=== PATIENT | male | born 1975 | race Caucasian/White ===

== ENCOUNTER 2019-04-25 18:53 | Inpatient (IN) | payer BC, SELFPAY ==
[2019-04-25 18:57] VITALS: BP 146/87; PULSE 111; RESP 16; TEMP 36.9; O2SAT 96; BMI 32.5
[2019-04-25 20:17] VITALS: BP 137/89; PULSE 112; RESP 20; TEMP 36.9; O2SAT 97
--- NOTE | 2019-04-25 20:19 | ED_ITS ---
HPI - Skin/Abscess/Foreign Bdy General Chief complaint: Skin/Abscess/Foreign Body Stated complaint: RIGHT LEG INFECTION Time Seen by Provider: 04/25/19 20:15 Source: patient Mode of arrival: Ambulatory Limitations: no limitations History of Present Illness HPI narrative: 43-year-old male sent over from his primary care doctor's office for evaluation of potential infection in his right thigh. Patient has been doin g testosterone injections. His last injection was approximately 6 days ago. Over the past couple days he has noticed swelling in his right leg. Went to primary doctor today. They noticed that it was swollen and warm and somewhat red. Patient has not had any fevers. This concerned her for an infection verses a blood clot. Sent to the emergency department for evaluation Related Data Home Medications Medication Instructions Recorded Confirmed No Known Home Medications 04/25/19 04/25/19 Allergies Allergy/AdvReac Type Severity Reaction Status Date / Time No Known Drug Allergies Allergy Verified 04/25/19 19:02 Review of Systems Constitutional Constitutional: Denies fever(s) Cardiovascular Cardiovascular: Denies chest pain and Denies dyspnea Respiratory Respiratory: Denies dyspnea Gastrointestinal Gastrointestinal: Denies abdominal pain Musculoskeletal Musculoskeletal: Denies tingling Comments: Right thigh pain Integumentary/Breasts Comments: Redness around right thigh Neurologic Neurologic: Denies behavioral changes and Denies tingling Psychiatric Psychiatric: Denies behavioral changes Hematologic/Lymphatic Hematologic/Lymphatic: Denies easy bleeding and Denies easy bruising Patient History Medical History Low testosterone (Acute) Social History household members: family Smoking Status: Never smoker Smoking Status: Never smoker alcohol intake frequency: 0-2 drinks per day Substance Use Type: does not use Exam Initial Vital Signs Initial Vital Signs: Vital Signs Temperature 98.4 F 04/25/19 18:57 Pulse Rate 111 H 04/25/19 18:57 Respiratory Rate 16 04/25/19 18:57 Blood Pressure 146/87 H 04/25/19 18:57 Pulse Oximetry 96 04/25/19 18:57 Const General: cooperative and comfortable Limitations: mental status not altered HENMT Head: normal to inspection and normocephalic Skin Other: Minimal redness anterior right thigh. Is warm over this area. Neuro Gait: normal gait Sensory Exam: no sensory deficits noted Extrem Other: Patient is swollen around the right thigh compared to the left side. Is somewhat diffusely tender. Psych Appearance: grossly normal and well kempt Course Orders Ordered: ED Orders 04/25/19 20:19 CT LE RT w con Stat 04/25/19 20:40 Basic Metabolic Panel Stat C-Reactive Protein Quant Stat Complete Blood Count AUTO DIFF Stat Creatine Kinase Stat Erythrocyte Sedimentation Rate Stat Lactate (Lactic Acid) Stat Reticulocyte Count, Percent Stat 04/25/19 22:45 Erythrocyte Sedimentation Rate Stat Sodium Chloride (Normal Saline 0.9%) 1,000 mls @ 125 mls/hr IV CONT RIVAS Last Admin: 04/26/19 00:26 Dose: 125 mls/hr Documented by: JAYME Morphine Sulfate (Morphine) 2 mg IV Q4HR PRN PRN Reason: Pain, Mild (1-3) Last Admin: 04/26/19 00:26 Dose: 2 mg Documented by: JAYME Ondansetron HCl (Zofran) 4 mg IV Q4HR PRN PRN Reason: Nausea And Vomiting Discontinued Medications Sodium Chloride (Normal Saline 0.9%) 1,000 mls @ 1,000 mls/hr IV BOLUS ONE Stop: 04/25/19 21:18 Last Infusion: 04/25/19 22:21 Dose: 0 mls/hr Documented by: [email or web address] Admin: 04/25/19 21:10 Dose: 1,000 mls/hr Documented by: [email or web address] Vancomycin HCl/Dextrose (Vancomycin) 2,000 mg in 400 mls @ 200 mls/hr IV NOW ONE Stop: 04/26/19 01:23 Last Admin: 04/26/19 00:25 Dose: 200 mls/hr Documented by: JAYME Influenza Virus Vaccine (Flu Vaccine) 0.5 ml IM .ONCE ONE Stop: 04/26/19 01:43 Vital Signs Vital signs: Vital Signs - 8 hr 04/25/19 18:57 04/25/19 20:17 04/25/19 20:32 Temperature 98.4 F 98.5 F 97.9 F Pulse Rate 111 H 112 H 102 H Respiratory Rate 16 20 16 Blood Pressure 146/87 H Blood Pressure [Right Arm] 137/89 137/89 Pulse Oximetry 96 97 95 04/25/19 21:51 04/25/19 22:37 Temperature 97.8 F Pulse Rate 101 H 69 Respiratory Rate 16 Blood Pressure Blood Pressure [Right Arm] 141/85 H 139/79 Pulse Oximetry 98 98 MDM - Skin/Abscess/Foreign Bdy Lab Data Attestation: I reviewed the patient's lab results. Result diagrams: 04/25/19 20:40 04/25/19 20:40 Labs: Lab Results 04/25/19 04/25/19 04/25/19 Range/Units 20:40 20:40 20:40 WBC 14.5 H (4.5-11.0) X10^3/uL RBC 4.52 (4.5-5.9) X10^6/uL Hgb 14.4 (13.5-17.5) g/dL Hct 42.3 (41-53) % MCV 93.7 (80-100) fL MCH 31.9 (26-34) PG MCHC 34.1 (30-36) % RDW 12.8 (11.6-14.8) % Plt Count 235 (150-400) X10^3/uL Neut % (Auto) 80.4 H (50-75) % Lymph % (Auto) 11.4 L (25-40) % [place] % (Auto) 7.8 (3-14) % Eos % (Auto) 0.2 L (2-4) % Baso % (Auto) 0.2 (0-2) % Neut # (Auto) 97905 H (6183-1401) /uL Lymph # (Auto) 1600 (4769-7590) /uL [place] # (Auto) 1100 H (0-900) /uL Eos # (Auto) 0 (0-450) /uL Baso # (Auto) 0 (0-100) /uL ESR QNS Percent Retic 1.5 (0.87-2.60) % Sodium 135 L (137-145) mmol/L Potassium 4.1 (3.4-5.1) mmol/L Chloride 101 (98-107) mmol/L Carbon Dioxide 26 (22-32) mmol/L BUN 7 L (9-20) mg/dL Creatinine 1.01 (0.66-1.25) mg/dL Estimated GFR > 60.0 (>60) mL/min BUN/Creatinine Ratio 6.9 (6-22) Glucose 93 (70-100) mg/dL Lactate (0.7-2.1) mmol/L Calcium 9.6 (8.4-10.2) mg/dL Total Creatine Kinase (55-170) U/L C-Reactive Protein (<1.0) mg/dL 04/25/19 04/25/19 04/25/19 Range/Units 20:40 20:40 20:40 WBC (4.5-11.0) X10^3/uL RBC (4.5-5.9) X10^6/uL Hgb (13.5-17.5) g/dL Hct (41-53) % MCV (80-100) fL MCH (26-34) PG MCHC (30-36) % RDW (11.6-14.8) % Plt Count (150-400) X10^3/uL Neut % (Auto) (50-75) % Lymph % (Auto) (25-40) % [place] % (Auto) (3-14) % Eos % (Auto) (2-4) % Baso % (Auto) (0-2) % Neut # (Auto) (3747-9462) /uL Lymph # (Auto) (0705-8824) /uL [place] # (Auto) (0-900) /uL Eos # (Auto) (0-450) /uL Baso # (Auto) (0-100) /uL ESR Percent Retic (0.87-2.60) % Sodium (137-145) mmol/L Potassium (3.4-5.1) mmol/L Chloride (98-107) mmol/L Carbon Dioxide (22-32) mmol/L BUN (9-20) mg/dL Creatinine (0.66-1.25) mg/dL Estimated GFR (>60) mL/min BUN/Creatinine Ratio (6-22) Glucose (70-100) mg/dL Lactate 0.7 (0.7-2.1) mmol/L Calcium (8.4-10.2) mg/dL Total Creatine Kinase 231 H (55-170) U/L C-Reactive Protein 4.2 H (<1.0) mg/dL 04/25/19 Range/Units 22:45 WBC (4.5-11.0) X10^3/uL RBC (4.5-5.9) X10^6/uL Hgb (13.5-17.5) g/dL Hct (41-53) % MCV (80-100) fL MCH (26-34) PG MCHC (30-36) % RDW (11.6-14.8) % Plt Count (150-400) X10^3/uL Neut % (Auto) (50-75) % Lymph % (Auto) (25-40) % [place] % (Auto) (3-14) % Eos % (Auto) (2-4) % Baso % (Auto) (0-2) % Neut # (Auto) (6891-3740) /uL Lymph # (Auto) (9895-3258) /uL [place] # (Auto) (0-900) /uL Eos # (Auto) (0-450) /uL Baso # (Auto) (0-100) /uL ESR 30 H Percent Retic (0.87-2.60) % Sodium (137-145) mmol/L Potassium (3.4-5.1) mmol/L Chloride (98-107) mmol/L Carbon Dioxide (22-32) mmol/L BUN (9-20) mg/dL Creatinine (0.66-1.25) mg/dL Estimated GFR (>60) mL/min BUN/Creatinine Ratio (6-22) Glucose (70-100) mg/dL Lactate (0.7-2.1) mmol/L Calcium (8.4-10.2) mg/dL Total Creatine Kinase (55-170) U/L C-Reactive Protein (<1.0) mg/dL Imaging Data CT extremity: Radiologist's Impression: [address] [address] [address] Scan Report Signed Patient: Regan TaverasMR#: [id number] : 1975Acct:[id number] Age/Sex: 43 / MDate of Service: 04/25/19 Loc: ED Accession Number: [id number] Procedure: CT LE RT w con Ordering Provider: Bernard Osorio D.O. PROCEDURE: CT LE RT W CON INDICATIONS: R thigh infection eval for deep abscess TECHNIQUE: After the administration of intravenous contrast, 3 mm axial sections acquired of the right thigh, with coronal and sagittal reformats. COMPARISON: None. FINDINGS: Image quality: Excellent. Bones: No suspicious osseous lesion, fracture, dislocation, or periostitis. Soft tissues: There is abnormal intramuscular low-density, and diffuse, mild muscular enlargement involving the right rectus femoris muscle from the proximal myotendinous junction through its distal tendon. A focal lentiform fluid collection is found along the lateral proximal aspect within the muscle fascia and there is moderate inflammation of the deep fascial margins. This intramuscular fluid collection to measures approximately 10.7 cm in craniocaudal dimension, 3.7 cm in AP direction by 2.0 cm transverse. There is no gas in the soft tissue. There is mild superficial fascial inflammation along the mid to distal thigh to the level of the knee joint. IMPRESSION: 1. There is an unencapsulated intramuscular fluid collection involving the proximal lateral rectus femoris muscle suspicious for early abscess. 2. There is mild inflammation, and diffuse low density, and enlargement involving the entire rectus femoris muscle with superficial and deep fascial inflammatory change suggesting myositis. No soft tissue gas to suggest myonecrosis. Close clinical followup is recommended. Dictated by: Elida Pyle M.D. on 04/25/2019 at 21:54 Approved by: Elida Pyle M.D. on 04/25/2019 at 22:07 [facility] Narrative Medical decision making narrative: Patient is at risk for infection/hematoma in his right thigh given the injections that he has been doing. He is afebrile however is slightly tachycardic. Also has a leukocytosis. Also has an elevated ESR and CRP. CT scan shows what appears to be a fluid collection in his right anterior thigh. There is question about whether not this is a hematoma verses a developing abscess. I did discuss the case with Dr. Galarza with Orthopedics who stated that the patient could be admitted. Recommended starting on vancomycin and NPO after midnight for potential surgery tomorrow. Did discuss this with the patient. He expressed understanding agreement. Discharge Plan Departure Patient Disposition: Home Clinical Impression: Abscess of right thigh Discharge Date/Time: 04/26/19 00:10 Admit Date/Time: 04/25/19 23:23
[2019-04-25 20:32] VITALS: BP 137/89; PULSE 102; RESP 16; TEMP 36.6; O2SAT 95
[2019-04-25 21:03] LABS: Add Manual Diff / Slide Review NO; Basophils Absolute Auto 0 /uL (0-100); Basophils Percent Auto 0.2 % (0-2); Eosinophils Absolute Auto 0 /uL (0-450); Eosinophils Percent Auto 0.2 % (2-4); Hematocrit 42.3 % (41-53); Hemoglobin 14.4 g/dL (13.5-17.5); Lymphocytes Absolute Auto 1600 /uL (1100-4500); Lymphocytes Percent Auto 11.4 % (25-40); Mean Corpuscular HGB Conc 34.1 % (30-36); Mean Corpuscular Hemoglobin 31.9 PG (26-34); Mean Corpuscular Volume 93.7 fL (80-100); Monocytes Absolute Auto 1100 /uL (0-900); Monocytes Percent Auto 7.8 % (3-14); Neutrophils Absolute Auto 11600 /uL (1500-7000); Neutrophils Percent Auto 80.4 % (50-75); Platelet Count 235 X10^3/uL (150-400); Red Blood Cell Count 4.52 X10^6/uL (4.5-5.9); Red Cell Distribution Width 12.8 % (11.6-14.8); White Blood Cell Count 14.5 X10^3/uL (4.5-11.0)
[2019-04-25 21:04] LABS: Reticulocyte Count, Percent 1.5 % (0.87-2.60)
[2019-04-25 21:08] LABS: Erythrocyte Sedimentation Rate QNS MM/HR (0-15)
[2019-04-25] MEDS: SODIUM CHLORIDE 0.9% 1,000 ML 1000 ML IV (21:10)
[2019-04-25 21:14] LABS: BUN Creatinine Ratio 6.9 (6-22); Blood Urea Nitrogen 7 mg/dL (9-20); Calcium 9.6 mg/dL (8.4-10.2); Carbon Dioxide 26 mmol/L (22-32); Chloride 101 mmol/L (98-107); Estimated Glomerular Filt Rate > 60.0 mL/min (>60); Glucose 93 mg/dL (70-100); HEMOLYSIS < 15 (0-50); Lactate (Lactic Acid) 0.7 mmol/L (0.7-2.1); Potassium 4.1 mmol/L (3.4-5.1); Sodium 135 mmol/L (137-145)
[2019-04-25 21:51] VITALS: BP 141/85; PULSE 101; O2SAT 98
[2019-04-25 22:37] VITALS: BP 139/79; PULSE 69; RESP 16; TEMP 36.6; O2SAT 98
[2019-04-25 22:41] LABS: Creatine Kinase 231 U/L (55-170)
[2019-04-25 22:44] LABS: C-Reactive Protein Quant 4.2 mg/dL (<1.0)
--- NOTE | 2019-04-25 23:09 | PC.NURSE ---
Report given to Galilea.
[2019-04-25 23:10] LABS: Erythrocyte Sedimentation Rate 30 MM/HR (0-15)
[2019-04-25 23:56] VITALS: BMI 32.5
[2019-04-26] VITALS (20 sets, daily range): BP systolic 116–157; BP diastolic 63–106; PULSE 73–107; RESP 10–19; TEMP 36.6–37.1; O2SAT 86–98; BMI 32.9
[2019-04-26] MEDS: VANCOMYCIN 2,000 MG/400 ML PIGGYBACK 200 MG IV (00:25)
[2019-04-26] MEDS: SODIUM CHLORIDE 0.9% 1,000 ML 125 ML IV ×2 (00:26→09:31)
[2019-04-26] MEDS: MORPHINE 2 MG/ML INJ IV ×2 (00:26→07:35)
--- NOTE | 2019-04-26 04:55 | PC.NURSE ---
Pt admitted to unit as AxOx4, VSS, slightly tachycardic. Complained of 4 out of 10 right thigh pain relieved with IV morphine. Right thigh is hot, red, swollen. No opened skin. Independent of ADLs NS@125mL/hr Kept NPO at midnight
[2019-04-26] MEDS: INFLUENZA VACCINE 0.5 ML SYRINGE IM (07:56)
--- NOTE | 2019-04-26 08:05 | PM.CN ---
History of Present Illness Consult details Date Patient Seen: 04/26/19 Time Patient Seen: 08:05 Chief complaint: RIGHT LEG INFECTION Reason for consult: Right rectus femoris pyomyositis Requesting provider: Bernard Osorio Narrative: Patient is a 43 yo male who recently (5 weeks ago) started injecting testosterone into his right thigh. Over the last several days patient has had increased pain in the right thigh. He was seen by his PCP who recommended he come to the ED for evaluation. In the ED CT scan revealed a 10cm by 4cm fluid collection within the right rectus femoris concerning for abscess. His infectious labs are also concerning for infection. He denies any trauma to the thigh. Denies any previous symptoms. Denies nausea, vomiting, fevers or chills. Meds Home Medications and Allergies Home Medications Medication Instructions Recorded Confirmed Type No Known Home Medications 04/25/19 04/25/19 History Allergies Allergy/AdvReac Type Severity Reaction Status Date / Time No Known Drug Allergies Allergy Verified 04/25/19 19:02 Review of Systems Review of Systems ROS: Yes All systems reviewed with the patient and are negative except as otherwise documented Exam Vital Signs (past 8 hours): - 04/26/19 00:20 04/26/19 05:00 Temperature 98.8 F 98.4 F Pulse Rate 107 H 92 H Respiratory Rate 18 18 Blood Pressure 132/89 136/72 Pulse Oximetry 97 97 Oxygen Delivery Method Room Air Oxygen Flow Rate 0 Narrative Exam Narrative: right thigh swelling, mild erythema, increased warmth. TTP over the proximal anterior thigh. NV intact distally. No drainage. Able to extend and flex knee. Skin is intact. Objective Labs Result Diagrams: 04/25/19 20:40 04/25/19 20:40 Labs: Laboratory Results - last 24 hr 04/25/19 04/25/19 04/25/19 20:40 20:40 20:40 WBC 14.5 H RBC 4.52 Hgb 14.4 Hct 42.3 MCV 93.7 MCH 31.9 MCHC 34.1 RDW 12.8 Plt Count 235 Neut % (Auto) 80.4 H Lymph % (Auto) 11.4 L [place] % (Auto) 7.8 Eos % (Auto) 0.2 L Baso % (Auto) 0.2 Neut # (Auto) 45652 H Lymph # (Auto) 1600 [place] # (Auto) 1100 H Eos # (Auto) 0 Baso # (Auto) 0 ESR QNS Percent Retic 1.5 Sodium 135 L Potassium 4.1 Chloride 101 Carbon Dioxide 26 BUN 7 L Creatinine 1.01 Estimated GFR > 60.0 BUN/Creatinine Ratio 6.9 Glucose 93 Lactate Calcium 9.6 Total Creatine Kinase C-Reactive Protein 04/25/19 04/25/19 04/25/19 20:40 20:40 20:40 WBC RBC Hgb Hct MCV MCH MCHC RDW Plt Count Neut % (Auto) Lymph % (Auto) [place] % (Auto) Eos % (Auto) Baso % (Auto) Neut # (Auto) Lymph # (Auto) [place] # (Auto) Eos # (Auto) Baso # (Auto) ESR Percent Retic Sodium Potassium Chloride Carbon Dioxide BUN Creatinine Estimated GFR BUN/Creatinine Ratio Glucose Lactate 0.7 Calcium Total Creatine Kinase 231 H C-Reactive Protein 4.2 H 04/25/19 22:45 WBC RBC Hgb Hct MCV MCH MCHC RDW Plt Count Neut % (Auto) Lymph % (Auto) [place] % (Auto) Eos % (Auto) Baso % (Auto) Neut # (Auto) Lymph # (Auto) [place] # (Auto) Eos # (Auto) Baso # (Auto) ESR 30 H Percent Retic Sodium Potassium Chloride Carbon Dioxide BUN Creatinine Estimated GFR BUN/Creatinine Ratio Glucose Lactate Calcium Total Creatine Kinase C-Reactive Protein Assessment & Plan Assessment & Plan narrative: Patient is a 43 yo male with a several day history of right thigh pain. He was found to have right rectus femoris pyomyositis. I had a long discussion with the patient regarding noon-operative and operative treatment. The area appears larger than what could be effectively treated with abx. In addition, abx only therapy may require a prolonged hospital course, which has its own risks with the current Coronavirus outbreak. For these reasons I recommend I&D followed by a short course of IV abx followed by transition to outpatient oral abx. The risks and benefits of surgery were discussed including the risk of damage to local structures such as vessels and nerves, need for future surgeries, continued infection, DVT, PE, etc. Time Spent With Patient Time with patient: 15-24 minutes
[2019-04-26] MEDS: VANCOMYCIN 1,500 MG/300 ML FROZ.PIGGY 200 MG IV ×2 (09:26→16:21)
--- NOTE | 2019-04-26 12:09 | PC.NURSE ---
Day shift: Pt off unit for I&D at this time. (1210).
[2019-04-26] MEDS: LACTATED RINGERS 1,000 ML 42 ML IV ×2 (12:18→14:48)
--- NOTE | 2019-04-26 12:49 | PM.PREOP ---
Pre-operative Note Interval Note History & Physical reviewed/Exam performed by Physician: Yes Changes to H&P: No H&P completed within 30 days and has changed as indicated here:: Plan for right thigh I&D
--- NOTE | 2019-04-26 13:34 | SUR.OPER ---
Supine on padded OR bed, head on pillow, arms secured on padded arm boards at <90 degrees abduction, legs uncrossed, safety belt at abdomen, bump under right hip, legs controlled by surgical team.
--- NOTE | 2019-04-26 14:13 | P.OP_ITS ---
Operative Date/Time/Diagnoses Date of procedure: 04/26/19 Time of procedure: 14:13 Pre-op diagnosis: right thigh abscess Post-op diagnosis: same Procedure & Clinicians Procedure: Right thigh irrigation and debridement of deep abscess Same procedure as scheduled: Yes Indications: right thigh rectus femoris pyomyositis Surgeon: Paul Galarza Carbon Brusher Assembler: Jenny Lal Anesthesia Type: General Operative Notes Findings: Right thigh rectus femoris pyomyositis Closure Type: primary Specimen(s): other (swabs and aspirate ) Estimated Blood Loss (mL): 50 Procedure in detail: Patient was met in the preoperative holding area where the site and side of surgery marked by MD consent was reviewed and signed with the patient. All last minute questions were answered. Patient was then brought back in the operating room where he was transferred on the operating room table and then induced under general anesthesia. The right hip was then prepped and draped in normal sterile fashion. A surgical time-out was performed verifying the site and side of surgery as well as the name of the patient. A 5 cm long incision in the long axis of the femur was made over the anterior thigh roughly in line with the anterior hip approach but slightly more medial. Skin incision was made using 10. Blade followed by electrocautery down to the rectus fascia. Rectus fascia was then incised with a #15 blade. I then used my finger to blunt dissect along the lateral margin of the rectus at which point a large bolus of purulent material came out of the rectus sheath and filled the wound. Cultures and swabs were taken from the sample. This was then suctioned away and copious irrigation of the rectus sheath with 6 L of normal saline and blunt debridement was performed. No other pockets of purulence were encountered. The rectus sheath was closed using 1. PDS followed by 2 0 PDS in subcutaneous layer followed by 3 O nylon in vertical mattress fashion followed by sterile dressings. Complications: none Post-operative Condition: stable Disposition: PACU Plan for aftercare: 24 hours of postop IV vancomycin followed by transition to oral antibiotics for 2 weeks. Weightbearing as tolerated right lower extremity
[2019-04-26] MEDS: HYDROMORPHONE 2 MG INJ IV (14:36)
[2019-04-26] MEDS: fentaNYL 100 MCG/2 ML INJ IV (14:37)
[2019-04-26] MEDS: hydrOXYzine 50 MG/ML INJ 25 MG IM (14:44)
[2019-04-26] MEDS: ONDANSETRON 4 MG/2 ML INJ IV (14:44)
--- NOTE | 2019-04-26 14:45 | CM.DANOTE ---
DCP assessment: EMR Reviewed: patient is a 43 yr old male who was admitted to the hospital for Rt leg infection. Patient had a I&D procedure preformed by Dr Galarza. CM/RN met with patient at the bedside and explained CM/RN role. Patient was alert and oriented x3 during CM/Rn visit. Patient is Independent for all ADLs and drives at baseline. Patient stated he doesn't want to be in the hospital. CM/Rn explained the reasoning behind staying in the hospital and getting IV antibiotics. Patient stated understanding and said he is willing to stay in the hospital he just doesn't really want to. Patients room mate/ family came in and was present during meeting as well. Patient lives in a two story house in [place] with 20 stairs. Patient was up and ambulating around the room while CM/RN was there and states he feels like he can handle stairs and caring for himself fine at D/C. I: [employer] out of state [facility] Plan: D/C home with family when medically stable. No identified D/C planning needs noted at this time. Cm department will continue to follow and assist with any new D/C planning needs that may arise. Misa Barillas RN Discharge Planning/Care Management CM Discharge Assessment Start: 04/26/19 14:43 Freq: Status: Active Protocol: Document 04/26/19 14:43 HS (Rec: 04/26/19 14:45 HS [id number]) Discharge Planning Assessment Assigned [employer] Misa Barillas RN DPOA/Assigned Designee Name Janice Arshad (girl friend) Contact Information [phone] Advance Directives? No History Provided By Patient,Medical Record Has Patient been admitted in last 30 No days? Prior Living Arrangements House Household Members family Type of transporation used prior to Drives own vehicle admit Independent with ADL's Yes Is patient alert and oriented? Yes Caregiver for Another No Barriers to Discharge No Discharge Plan Home Referrals Initiated None needed Whiteboard Updated in Patient Room with Yes name and ext. # of [employer] Review Status In Process Next Review Type Continued Stay Review
--- NOTE | 2019-04-26 15:14 | SUR.PHASEI ---
Assumed care. VS stable. Ice pack applied to thigh per order. Ice chips provided.
--- NOTE | 2019-04-26 16:04 | SUR.PHASEI ---
Transported patient to inpatient room in stable condition with assistance of OR tech.
[2019-04-26] MEDS: ACETAMINOPHEN 325 MG TABLET 975 MG PO ×2 (16:21→22:03)
[2019-04-26] MEDS: OXYCODONE IR 5 MG TABLET PO ×2 (16:22→22:03)
[2019-04-26] MEDS: OXYCODONE IR 10 MG TABLET PO (17:24)
[2019-04-26 19:21] LABS: Hematocrit 37.1 % (41-53); Hemoglobin 12.9 g/dL (13.5-17.5)
[2019-04-26] MEDS: DOCUSATE 100 MG CAPSULE PO (22:04)
[2019-04-27] MEDS: VANCOMYCIN 1,500 MG/300 ML FROZ.PIGGY 200 MG IV ×3 (00:47→19:22)
[2019-04-27 01:09] LABS: Vancomycin Trough 10.1 ug/mL (10-20)
[2019-04-27] MEDS: VANCOMYCIN TROUGH 1 REQUEST MISC (01:27)
[2019-04-27] MEDS: OXYCODONE IR 5 MG TABLET PO ×4 (02:58→12:41)
[2019-04-27 03:24] VITALS: BP 125/78; PULSE 77; RESP 16; TEMP 36.6; O2SAT 97
[2019-04-27 06:56] LABS: C-Reactive Protein Quant 6.8 mg/dL (<1.0)
[2019-04-27 06:59] LABS: Hematocrit 38.5 % (41-53); Mean Corpuscular HGB Conc 33.7 % (30-36); Mean Corpuscular Hemoglobin 31.7 PG (26-34); Platelet Count 238 X10^3/uL (150-400); Red Cell Distribution Width 12.5 % (11.6-14.8); White Blood Cell Count 8.1 X10^3/uL (4.5-11.0)
[2019-04-27 07:45] VITALS: BP 141/87; PULSE 108; RESP 18; TEMP 37; O2SAT 99
[2019-04-27] MEDS: ACETAMINOPHEN 325 MG TABLET 975 MG PO ×3 (08:49→21:26)
[2019-04-27] MEDS: DOCUSATE 100 MG CAPSULE PO ×2 (08:54→21:27)
--- NOTE | 2019-04-27 09:27 | PM.PNPO.1 ---
Subjective Subjective Date Patient Seen: 04/27/19 Time Patient Seen: 09:27 Interval history: Pain mild. Denies fever chills. No nausea vomiting. Exam Vital Signs (past 8 hours): - 04/27/19 03:24 04/27/19 07:45 Temperature 97.9 F 98.6 F Pulse Rate 77 108 H Respiratory Rate 16 18 Blood Pressure 125/78 141/87 H Pulse Oximetry 97 99 Oxygen Delivery Method Nasal Cannula Oxygen Flow Rate 0 Narrative Exam Narrative: 43-year-old male sitting comfortably in bedside chair in no apparent distress. Right thigh dressing is clean, dry and intact. Mild swelling generally about the anterior lateral thigh. No erythema noted. Motor functions intact distal right lower extremity. Sensation grossly intact light touch. Objective Labs Result Diagrams: 04/27/19 06:32 04/25/19 20:40 Labs: Laboratory Results - last 24 hr 04/26/19 04/27/19 04/27/19 19:14 00:30 06:32 WBC 8.1 RBC 4.10 L Hgb 12.9 L 13.0 L Hct 37.1 L 38.5 L MCV 94.0 MCH 31.7 MCHC 33.7 RDW 12.5 Plt Count 238 C-Reactive Protein Vancomycin Trough 10.1 04/27/19 06:32 WBC RBC Hgb Hct MCV MCH MCHC RDW Plt Count C-Reactive Protein 6.8 H Vancomycin Trough Assessment & Plan Post-op Postoperative Procedures: Procedures Operation Date: 04/26/19 12:30 Actual Procedures Side Surgeon p Right Thigh abscess in Rectus Remoris Right Paul Galarza MD Postop day 1 status post right thigh irrigation debridement of deep abscess. Postop plan was to continue 24 hours of IV antibiotics followed by transition to oral antibiotics for 2 weeks. Weightbearing as tolerated right lower extremity. After talking with Dr. Galarza this morning patient will continue another 24 hours of IV antibiotics. Repeat CBC, sed rate, C reactive protein. Review lab results with Dr. Galarza prior to transition to oral antibiotics and discharge home.
--- NOTE | 2019-04-27 10:30 | PT.IIE ---
Current Diagnoses Infective myositis, right thigh (04/25/19) Surgery Performed Operation Date: 04/26/19 12:30 Actual Procedures p Right Thigh abscess in Rectus Remoris(Right) - Paul Galarza MD Medical History (Last Reviewed 04/26/19 @ 08:08 by Paul Galarza MD) Low testosterone (Acute) Physical Therapy Inpatient Evaluation/Re-Eval M1 PT/OT-IP Prior Functional Status Start: 04/27/19 08:30 Freq: NEEDED Status: Active Protocol: Document 04/27/19 09:31 HH (Rec: 04/27/19 10:30 [email or web address]) Medical Review Prior Functional Status Medical History Reviewed Yes Diet/Fluid Consistency Regular Communication no deficits noted. able to make needs known Mobility and Gait independent for all mobility without difficulty. Active in weightlifting Activities of Daily Living and IADL's independent with all ADLs and IADLs. Social History Household Members family Living Arrangements House Number of Floors (Floors) Two Floors Number of Stairs To Enter/Railing? Pt lives on main floor has 20 steps to get to 2nd floor. Home Environment Standard Height Toilet,Walk in Shower Employment Status Tax Compliance Representative Employed Additional Social History Comment Pt lives with his fiance and 1 7 yo children in [facility]. Pt stated he started this steroid treatment under MD's supervision since a month ago and pt believed he didnt use a clean needle during injection . M2 PT-IP Current Condition Start: 04/27/19 08:30 Freq: NEEDED Status: Active Protocol: Document 04/27/19 09:31 HH (Rec: 04/27/19 10:30 [email or web address]) Physical Therapy Current Condition Current Condition Evaluation Date 04/27/19 Treatment Diagnosis I & D at R upper thigh d/t infection after steroid injection Onset Date 04/25/19 Weight Bearing Status Weight Bearing Status Weight Bear as Tolerated M3 PT-IP Subjective Start: 04/27/19 08:30 Freq: NEEDED Status: Active Protocol: Document 04/27/19 09:31 HH (Rec: 04/27/19 10:30 [email or web address]) Subjective Physical Therapy Visit Type Type Initial Evaluation Visit Start Time 09:31 Visit Stop Time 09:43 Total Visit Minutes 12 Notes Per RN, pt will stay another night for IV treatment. Number of FILE KEEPER Visits 0 Physical Therapy Visit Comments Patient Comments Im feeling fine. Patient Goals To return as soon as possible Therapy Pain Assessment Pain When Pain Assessed During Mobility Pain Present Pain Present Pain Reported Location right thigh Intensity 6 Scale Used Numeric (1 - 10) Description Aching Pain Management Techniques Timing of Activity with Medications M4 PT-IP Mobility and Gait Start: 04/27/19 08:30 Freq: NEEDED Status: Active Protocol: Document 04/27/19 09:31 (Rec: 04/27/19 10:30 [email or web address]) PT-Transfer Assessment Sit to and From Stand Sit to and from Stand Independent Equipment Transfer Assistive Device None Transfers Transfer Destination Chair Transfer Technique Stand Step Pivot Transfer Ability Level of Assist Independent Comments Mobility Comments Pt was up in chair sitting comfortably upon PT arrival. Reports having pain with quadriceps contraction but tolerable. Pt agreeable to mobilize with PT for assessment. Pt then stood up with stagger stance and primarily used LLE to WB d/t pain at R thigh. He was able to walk 2 laps of Holla[employer]Me with antalgic gait. He is overall very safe and steady but does have increased pain after mobility. He the returned to chair after and call light placed within reach . Gait Assessment Gait Gait Assistance Required: Independent Distance (Feet) 420 Able to Maintain Weight Bearing Status Yes During Gait Assistive Devices Assistive Device None Orthotic/Prosthetic Devices or Brace: No Gait Deviations General Gait Pattern Antalgic Factors Limiting Gait Function Factors Limiting Gait Function Pain Comments Gait Comments see mobility comments. Stair Climbing Assessment Comments Stair Climbing Comments does not need assessment. PT-Balance Assessment Sitting Balance and Reactions Static Sitting Balance Ability Normal Dynamic Sitting Balance Ability Normal Standing Balance and Reactions Static Standing Balance Ability Normal Dynamic Standing Balance Ability Normal M5 PT-IP Objective Assessments Start: 04/27/19 08:30 Freq: NEEDED Status: Active Protocol: Document 04/27/19 09:31 (Rec: 04/27/19 10:30 [email or web address]) Orientation Orientation/Cognition Level of Alertness Alert Orientation Name,Age,Birthday,Month,Date, Year,Day of Week,Place, Situation Language Function Ability No Deficits Noted Safety Awareness Understands Safety Issues Memory Description No Deficits Noted Gross Range of Motion Upper Extremity ROM Assessment Within Functional Limits Lower Extremity ROM Assessment Right Impaired Impairments unable to flex his knee much d /t pain Strength Upper Extremity Strength Assessment Within Functional Limits Lower Extremity Strength Assessment Right Impaired Hip 4+/5 Knee 4-/5 Ankle 5/5 Sensation Assessment Sensation Gross Sensation WNL Light Touch Intact Proprioception (Position) Intact Muscle Tone Muscle Tone WNL Yes M6 PT-IP Treatment Start: 04/27/19 08:30 Freq: NEEDED Status: Active Protocol: Document 04/27/19 09:31 (Rec: 04/27/19 10:30 [email or web address]) Physical Therapy Treatment Education Education Provided Safety M7 PT-IP Assessment and Plan Start: 04/27/19 08:30 Freq: NEEDED Status: Active Protocol: Document 04/27/19 09:31 (Rec: 04/27/19 10:30 [email or web address]) PT Summary Assessment and Plan Potential Rehabilitation Potential Excellent Status of Condition at Evaluation Stable Summary Progress Towards Goals Safe For Discharge Assessment Summary This is a low complexity evaluation for this 43 yo male s/p POD2 I&D at R upper thigh d/t infection from steroid injection. His currently major limitation is his pain with the use of quadriceps but he was able mobilize with antalgic gait safely and steady. Educated him to perform self soft tissue mobilization and quad stretch after his scar is heal to prevent muscle stiffness. He does not have the need for skilled therapy at this point and notified nurse that he could be independent for mobility during his stay. He will be d/c home without assistance once he is medically stable. Frequency of Treatment Frequency Of Treatment Discharge Recommendations To Nursing Amount of Assist Needed Independent Discharge Recommendations PT Discharge Recommendations Home Transportation Needs at Discharge Private Vehicle
--- NOTE | 2019-04-27 11:58 | PC.NURSE ---
Addendum entered by Chante Ortega R.N. 04/27/19 12:37: RLE swelling has increased distally to patient's knee after sitting in the chair this morning. No redness or warmth noted. Pulses intact, patient has sensation. Patient given ice packs and leg elevated slightly. Patient tolerating well. Pain noted to be at a 6. Will administered PRN medications. Original Note: Patient independent in the room. A/Ox3. Verbalizes pain relief with PRN medication, OXY 5mg PO. Right thigh dsg is CDI, no swelling, redness or streaking noted on surrounding skin. Ambulated in halls with PT. Patient's IV site is CDI, saline locked except for intermittent abx. Voiding in restroom, denies N/V, chest pain, SOB, dizziness or lightheadedness. Afebrile. Call light in reach.
[2019-04-27 12:48] VITALS: BP 140/91; PULSE 90; RESP 17; TEMP 37.2; O2SAT 96
[2019-04-27 15:50] VITALS: BP 151/88; PULSE 88; RESP 18; TEMP 36.6; O2SAT 99
[2019-04-27] MEDS: OXYCODONE IR 10 MG TABLET PO ×2 (17:01→21:26)
[2019-04-27 19:37] VITALS: BP 120/72; PULSE 81; RESP 20; TEMP 36.7; O2SAT 97
[2019-04-27 23:57] VITALS: BP 117/69; PULSE 77; RESP 16; TEMP 36.9; O2SAT 93
[2019-04-28] MEDS: OXYCODONE IR 10 MG TABLET PO ×2 (01:13→06:35)
[2019-04-28] MEDS: VANCOMYCIN 1,500 MG/300 ML FROZ.PIGGY 125 MG IV (03:05)
[2019-04-28 03:25] VITALS: BP 120/72; PULSE 93; RESP 16; TEMP 36.5; O2SAT 97
[2019-04-28 06:09] LABS: Add Manual Diff / Slide Review NO; Basophils Absolute Auto 0 /uL (0-100); Basophils Percent Auto 0.5 % (0-2); Eosinophils Absolute Auto 200 /uL (0-450); Eosinophils Percent Auto 2.4 % (2-4); Hematocrit 40.3 % (41-53); Hemoglobin 13.8 g/dL (13.5-17.5); Lymphocytes Absolute Auto 1500 /uL (1100-4500); Lymphocytes Percent Auto 21.8 % (25-40); Mean Corpuscular HGB Conc 34.2 % (30-36); Mean Corpuscular Volume 93.4 fL (80-100); Monocytes Absolute Auto 600 /uL (0-900); Monocytes Percent Auto 9.4 % (3-14); Neutrophils Absolute Auto 4400 /uL (1500-7000); Neutrophils Percent Auto 65.9 % (50-75); Platelet Count 261 X10^3/uL (150-400); Red Blood Cell Count 4.31 X10^6/uL (4.5-5.9); Red Cell Distribution Width 12.5 % (11.6-14.8); White Blood Cell Count 6.7 X10^3/uL (4.5-11.0)
[2019-04-28 06:26] LABS: Erythrocyte Sedimentation Rate 58 MM/HR (0-15)
[2019-04-28 06:33] LABS: C-Reactive Protein Quant 4.3 mg/dL (<1.0)
[2019-04-28] MEDS: ACETAMINOPHEN 325 MG TABLET 975 MG PO (09:37)
[2019-04-28] MEDS: DOCUSATE 100 MG CAPSULE PO (09:38)
[2019-04-28] MEDS: BISACODYL 10 MG SUPP PR (09:52)
--- NOTE | 2019-04-28 10:12 | P.PN_ITS ---
Exam Vital Signs (past 8 hours): - 04/28/19 03:25 Temperature 97.7 F Pulse Rate 93 H Respiratory Rate 16 Blood Pressure 120/72 Pulse Oximetry 97 Oxygen Delivery Method Room Air Oxygen Flow Rate 0 Objective Labs Result Diagrams: 04/28/19 06:00 04/25/19 20:40 Labs: Laboratory Results - last 24 hr 04/28/19 04/28/19 06:00 06:00 WBC 6.7 RBC 4.31 L Hgb 13.8 Hct 40.3 L MCV 93.4 MCH 32.0 MCHC 34.2 RDW 12.5 Plt Count 261 Neut % (Auto) 65.9 Lymph % (Auto) 21.8 L [place] % (Auto) 9.4 Eos % (Auto) 2.4 Baso % (Auto) 0.5 Neut # (Auto) 4400 Lymph # (Auto) 1500 [place] # (Auto) 600 Eos # (Auto) 200 Baso # (Auto) 0 ESR 58 H C-Reactive Protein 4.3 H Assessment & Plan Assessment & Plan narrative: Postop day 2 status post right thigh irrigation debridement of deep abscess (rectus femoris pyomyositis). Today's infectious labs were reviewed. Normalization of WBC, downtrending CRP. Patient will be transitioned to Linezolid 600mg BID for 2 weeks. I will see him back in clinic next week for wound check. Patient is instructed to call clinic if he has nause a, vomiting, fevers, chills, or worsening pain. WBAT RLE, no further injections right thigh Time Spent With Patient Time with patient: 15-24 minutes
[2019-04-28] MEDS: LINEZOLID 600 MG TABLET PO (10:37)
--- NOTE | 2019-04-28 10:42 | PM.DS.1 ---
History of Present Illness History of Present Illness Date Patient Seen: 04/28/19 Time Patient Seen: 10:42 Chief complaint: right thigh abscess Narrative: Patient presented with several day history of worsening right thigh pain. Of note patient has a history testosterone injections into the right thigh. He does he is about once a week. CT scan in the hospital ER found a abscess within the rectus femoris sheath consistent with pyomyositis. Discharge Providers Provider Date of admission: 04/25/19 23:23 Discharge Date: 04/28/19 Consults: 04/25/19 23:27 Consult to Orthopedic Surgery Urgent Comment: Consulting Provider: Paul Galarza Reason for consultation: Admission Has provider been notified: Yes 04/26/19 15:58 Consult to Discharge Planning Routine Comment: Consult to Physical Therapy Evaluate & Treat Comment: Physician Instructions: Evaluate and Treat Consult to Respiratory Therapy Evaluate & Treat Comment: Physician Instructions: Evaluate and treat Discharge provider: Paul Galarza MD Summary Hospital Course Discharge Diagnosis: Right rectus femoris pyomyositis Hospital Course: He was taken to the OR the morning after admission for irrigation debridement. A large amount of purulence material was removed from the rectus sheath and there tissue was thoroughly irrigated. He subsequently had 48 hours of IV vancomycin followed by transition to oral linezolid for 2 weeks. His infectious markers were down trending at this time and his white blood cell count has returned to normal. Afebrile Exam Vital Signs (past 8 hours): - 04/28/19 03:25 Temperature 97.7 F Pulse Rate 93 H Respiratory Rate 16 Blood Pressure 120/72 Pulse Oximetry 97 Oxygen Delivery Method Room Air Oxygen Flow Rate 0 Narrative Exam Narrative: Decreased swelling the right thigh. No surrounding erythema. No significant pain with weight-bearing. Neurovascular intact. Objective Labs Result Diagrams: 04/28/19 06:00 04/25/19 20:40 Labs: Laboratory Results - last 24 hr 04/28/19 04/28/19 06:00 06:00 WBC 6.7 RBC 4.31 L Hgb 13.8 Hct 40.3 L MCV 93.4 MCH 32.0 MCHC 34.2 RDW 12.5 Plt Count 261 Neut % (Auto) 65.9 Lymph % (Auto) 21.8 L [place] % (Auto) 9.4 Eos % (Auto) 2.4 Baso % (Auto) 0.5 Neut # (Auto) 4400 Lymph # (Auto) 1500 [place] # (Auto) 600 Eos # (Auto) 200 Baso # (Auto) 0 ESR 58 H C-Reactive Protein 4.3 H Discharge Plan Discharge Plan Patient Disposition: Home Discharge orders & Medications Prescriptions: New linezolid 600 mg Tablet 600 mg PO BID 14 Days Qty: 28 RF: 0 oxycodone 5 mg Tablet 5 mg PO Q3HR PRN (Reason: Pain, Moderate (4-6)) 14 Days Qty: 28 RF: 0 No Action No Known Home Medications RF: 0 Follow up/Referrals: Paul Galarza MD [Physician] - Diet/Activity/Treatments Diet: Diet as Tolerated Activity: WBAT RLE Cold/Heat Therapy: ICE as needed to help with swelling. Skin/Wound/Dressing Care Dressing: Dressing can be removed tomorrow. Other wound treatment: OK to shower over the incision. Do not soak incision (bathtub or hot tub). Do not put any lotion or ointment on incision. Visit Report/Discharge Packet Instructions: DI for Skin Abscess Stand Alone Forms: Surgery Discharge
--- NOTE | 2019-04-28 11:14 | PC.NURSE ---
AM Shift. pt AO and receptive to care. Reporting mild 5/10 pain to right thigh and managed with Tylenol and ice packs. IND in room and voiding. pt reporting constipation as his normal and administered suppository. Medium BM there after. Switched from IV ABX to PO. DC instructions provided, belongings packed up, supplies for one dressing change provided, prescriptions provided, PIV removed and tolerated well. no questions remained. LOTTERIES AGENT transfer to car.
== END 2019-04-28 11:05 | disposition home or self-care (01) | DRG 502 ==
LOC: ED 23:23 → AC 23:24
PROVIDERS: Physician Assistant Medical; Admitting Provider Orthopaedic Surgery Adult Reconstructive Orthopaedic Surgery; Emergency Provider Emergency Medicine; Visit Provider Orthopaedic Surgery Adult Reconstructive Orthopaedic Surgery
PROC: 0K9Q0ZX Drainage of Right Upper Leg Muscle, Open Approach, Diagnostic (ICD-10-PCS; principal; 2019-04-26 12:30)
DX: M60.051 Infective myositis, right thigh (principal); Z23 Encounter for immunization
CPT/HCPCS: 36415; 73701; 80048; 80202; 82550; 83605; 85014; 85018; 85025; 85027; 85045; 85651; 86140; 87040; 87070; 87075; 87077; 87147; 87186; 87205; 90471; 90656; 96360; 97161; 99284; J1170; J2250; J2270; J2405; J2704; J3010; J3410; Q2038; Q9967

== ENCOUNTER 2022-08-26 13:23 | Emergency (ER) | payer BC, SELFPAY ==
[2021-10-24 11:01] VITALS: BMI 32.5
[2022-08-26 13:25] VITALS: BP 163/90; PULSE 109; RESP 22; TEMP 36.9; O2SAT 98; BMI 35.3
[2022-08-26 13:28] VITALS: PULSE 111; RESP 21; O2SAT 94
[2022-08-26 13:30] VITALS: BP 156/86; PULSE 113; RESP 22; O2SAT 93
--- NOTE | 2022-08-26 13:48 | PC.NURSE ---
pt is poor historian. pt states he was stung by a bee and started to feel an allergic reaction. when probed about what his symptoms are, pt states he had chest tightness with sinus tightness, swelling in his lips, maybe his tongue, he might have had a hard time breathing. but his heart was racing. he took 50mg of benadryl and 2 adult aspirin. when this did not make him feel better he called 911. [address] to ER
[2022-08-26] MEDS: FAMOTIDINE 20 MG/2 ML VIAL 40 MG IV (14:02)
[2022-08-26] MEDS: methylPREDNISolone 125 MG/2 ML VIAL IV (14:02)
--- NOTE | 2022-08-26 15:51 | ED.ALLEREA ---
HPI - Allergic Reaction <Prakash Yu PA-C - Last Filed: 08/26/22 15:58> General Chief complaint: Allergic Reaction Stated complaint: allergic reaction Time Seen by Provider: 08/26/22 13:27 Source: patient and EMS Mode of arrival: EMS History of Present Illness HPI narrative: 46-year-old male with prior allergic reaction to bee stings presents to the ED status post a bee sting sustained this morning. Patient experienced an allergic reaction including lip swelling, fast heartbeat, all over itchy rash, tunnel vision. Patient denies fever, chills, nausea, vomiting, abdominal pain, diarrhea, wheezing, shortness of breath, lightheadedness, dizziness, syncope. Patient took 50 mg of Benadryl right thereafter and called 911. Patient was given a dose of epinephrine by EMS. Patient states that he does not have a EpiPen prescribed currently. Related Data Previous Rx's Medication Instructions Recorded oxycodone 5 mg tablet 5 mg PO Q4H PRN pain #1 tab 02/12/22 alprazolam 0.25 mg tablet (Xanax) 0.25 mg PO DAILY #1 tab 02/27/22 epinephrine 0.3 mg/0.3 mL 0.3 mg (0.3 mL) IM Q5-15M PRN 08/26/22 injection, auto-injector (EpiPen anaphylaxis #2 ea 2-Moises) prednisone 20 mg tablet 40 mg PO DAILY 5 days #10 tabs 08/26/22 Allergies Allergy/AdvReac Type Severity Reaction Status Date / Time No Known Drug Allergies Allergy Verified 08/26/22 13:35 Review of Systems <Prakash Yu PA-C - Last Filed: 08/26/22 15:58> Review of Systems ROS Unobtainable: All systems reviewed & are unremarkable except as noted in HPI and below Constitutional Constitutional: Denies chills, Denies fatigue, Denies fever(s), Denies frequent falls, Denies lethargy and Denies weakness Eyes Eyes: Denies change in vision, Denies eye discharge, Denies irritation and Denies loss of vision ENT Ears, Nose, Mouth, and Throat: Denies change in voice, Denies dizziness, Reports lip swelling, Denies neck pain, Denies sore throat and Denies throat swelling Comments: Tunnel vision Cardiovascular Cardiovascular: Denies chest pain, Reports rapid heart rate, Denies irregular heart rhythm, Denies lightheadedness, Denies palpitations, Denies dyspnea, Denies dyspnea on exertion and Denies orthopnea Respiratory Respiratory: Denies cough, Denies dyspnea, Denies dyspnea on exertion and Denies wheezing Gastrointestinal Gastrointestinal: Denies abdominal pain, Denies change in bowel habits, Denies diarrhea, Denies nausea and Denies vomiting Genitourinary Genitourinary: Denies hematuria, Denies flank pain, Denies urinary incontinence and Denies urinary urgency Musculoskeletal Musculoskeletal: Denies back pain, Denies muscle weakness, Denies neck pain, Denies numbness and Denies tingling Integumentary/Breasts Skin/Breast: Denies pruritus, Denies erythema, Denies rash and Denies wounds Comments: Generalized hives Neurologic Neurologic: Denies behavioral changes, Denies confusion, Denies dizziness, Denies frequent falls, Denies loss of vision, Denies numbness, Denies tingling and Denies weakness Psychiatric Psychiatric: Denies anxiety, Denies behavioral changes, Denies confusion, Denies depression, Denies homicidal ideation and Denies suicidal ideation Endocrine Endocrine: Denies fatigue, Denies flushing and Denies palpitations Hematologic/Lymphatic Hematologic/Lymphatic: Denies easy bruising Allergic/Immunologic Allergic/Immunologic: Denies urticaria, Reports lip swelling, Denies throat swelling and Denies wheezing Patient History <Prakash Yu PA-C - Last Filed: 08/26/22 15:58> Medical History (Updated 08/26/22 @ 15:23 by Prakash Yu PA-C) Encounter for sterilization History of high blood pressure Low testosterone Sterilization consult Surgical History Hx of circumcision Family History Father Cancer Hyperlipidemia Hypertension Social History marital status: number of children: 3 household members: family Smoking Status: Never smoker alcohol intake: current caffeine: Yes Type(s) of exercise: weight lifting frequency: 1-2 times per week duration: 60-90 minutes/day Smoking Status: Never smoker alcohol intake frequency: 0-2 drinks per day Substance Use Type: does not use Exam <Prakash Yu PA-C - Last Filed: 08/26/22 15:58> Narrative Exam Narrative: Const General:?cooperative, healthy appearing and comfortable [facility] Head:?normal to inspection Ears:?hearing grossly normal bilaterally Nose:?external nose normal Face and sinus:?normal facial exam and sinuses nontender Mouth:?oral mucosae normal; no angioedema Throat:?posterior oropharynx normal; no angioedema; airway is patent Eyes General:?appearance normal, both eyes and all related structures Neck Neck:?normal visual inspection and no lymphadenopathy noted Resp Effort & Inspection:?normal respiratory effort Auscultation:?clear to auscultation bilaterally; no wheezing Cardio Rate:?regular rate Rhythm:?regular rhythm Integumentary Generalized hives. GI Abdomen is soft, nondistended, nontender to palpation. Neuro General:?patient alert, patient awake and patient oriented x3 Initial Vital Signs Initial Vital Signs: Vital Signs Temperature 98.4 F 08/26/22 13:25 Pulse Rate 109 H 08/26/22 13:25 Respiratory Rate 22 08/26/22 13:25 Blood Pressure 163/90 H 08/26/22 13:25 Pulse Oximetry 98 08/26/22 13:25 Oxygen Delivery Method Room Air 08/26/22 13:25 <Andria Caicedo DO - Last Filed: 08/26/22 19:45> Initial Vital Signs Initial Vital Signs: Vital Signs Temperature 98.4 F 08/26/22 13:25 Pulse Rate 109 H 08/26/22 13:25 Respiratory Rate 22 08/26/22 13:25 Blood Pressure 163/90 H 08/26/22 13:25 Pulse Oximetry 98 08/26/22 13:25 Oxygen Delivery Method Room Air 08/26/22 13:25 Course <Prakash Yu PA-C - Last Filed: 08/26/22 15:58> Orders Ordered: Discontinued Medications Famotidine (Famotidine 20 Mg/2 Ml Vial) 40 mg IV NOW RIVAS Last Admin: 08/26/22 14:02 Dose: 40 mg Documented By: NR Methylprednisolone (Methylprednisolone 125 Mg/2 Ml Vial) 125 mg IV NOW ONE Stop: 08/26/22 13:41 Last Admin: 08/26/22 14:02 Dose: 125 mg Documented By: NR Vital Signs Vital signs: Vital Signs - 8 hr 08/26/22 13:25 08/26/22 13:28 08/26/22 13:30 Temperature 98.4 F Pulse Rate 109 H 111 H Respiratory Rate 22 21 Blood Pressure 163/90 H 156/86 H Pulse Oximetry 98 94 Oxygen Delivery Method Room Air 08/26/22 13:30 Temperature Pulse Rate 113 H Respiratory Rate 22 Blood Pressure Pulse Oximetry 93 Oxygen Delivery Method <Andria Caicedo DO - Last Filed: 08/26/22 19:45> Orders Ordered: Discontinued Medications Famotidine (Famotidine 20 Mg/2 Ml Vial) 40 mg IV NOW RIVAS Last Admin: 08/26/22 14:02 Dose: 40 mg Documented By: NR Methylprednisolone (Methylprednisolone 125 Mg/2 Ml Vial) 125 mg IV NOW ONE Stop: 08/26/22 13:41 Last Admin: 08/26/22 14:02 Dose: 125 mg Documented By: NR Vital Signs Vital signs: Vital Signs - 8 hr 08/26/22 13:25 08/26/22 13:28 08/26/22 13:30 Temperature 98.4 F Pulse Rate 109 H 111 H Respiratory Rate 22 21 Blood Pressure 163/90 H 156/86 H Pulse Oximetry 98 94 Oxygen Delivery Method Room Air 08/26/22 13:30 Temperature Pulse Rate 113 H Respiratory Rate 22 Blood Pressure Pulse Oximetry 93 Oxygen Delivery Method MDM - Allergic Reaction <Prakash Yu PA-C - Last Filed: 08/26/22 15:58> MDM Narrative Medical decision making narrative: 46-year-old male with prior allergic reaction to bee stings presents to the ED status post a bee sting sustained this morning. Concern for allergic reaction versus anaphylaxis versus other. Patient is stable in the ED. no angioedema on exam in the ED. no wheezing. Benign abdomen. Patient appears comfortable. There is some generalized hives. Given that patient already got a dose of epinephrine, Benadryl, will give Pepcid AC and methylprednisolone. Will observe patient for the next few hours. Patient responded well to all the medications, rash and angioedema resolved. Patient was symptom free prior to discharge. Patient prescribed epinephrine and prednisone. ED return precautions were discussed with patient. Patient verbalized understanding. Medical records reviewed: Yes Discharge Plan Departure Patient Disposition: Home Clinical Impression: Anaphylactic reaction Instructions: DI for Anaphylaxis Activity Restrictions/Additional Instructions: You were evaluated in the ED today for an allergic reaction. It appears that you had an anaphylactic reaction that included some lip swelling, rashes and a rapid heartbeat when you were stung by a bee earlier today. You got epinephrine, Benadryl, Pepcid AC, methylprednisolone for your symptoms. Your symptoms resolved with the medications. You are being sent home with a prescription for prednisone and EpiPen. Please do not hesitate to use the EpiPen if you have similar reactions and call 911. Prescriptions: New prednisone 20 mg tablet 40 mg PO DAILY 5 Days Qty: 10 0RF epinephrine [EpiPen 2-Moises] 0.3 mg/0.3 mL auto-injector 0.3 mg IM Q5-15M PRN (Reason: anaphylaxis) Qty: 2 0RF Rx Instructions: do not exceed 3 doses per episode No Action oxycodone 5 mg tablet 5 mg PO Q4H PRN (Reason: pain) Qty: 1 0RF Rx Instructions: Take tablet 1-1-1/2 hours before scheduled appointment. You must have a designated charter coach driver both to and from appointment. alprazolam [Xanax] 0.25 mg tablet 0.25 mg PO DAILY Qty: 1 0RF Rx Instructions: Take the tablet 1 hour before scheduled appointment as directed. You must have a designated charter coach driver both to and from appointment. Stand Alone Forms: Patient Portal/API <Andria Caicedo DO - Last Filed: 08/26/22 19:45> Cosign ED Attending Julio Cesar Attestation: I was immediately available in the department for consultation. Documentation has been reviewed.
== END 2022-08-26 15:30 | disposition home or self-care (01) ==
PROVIDERS: Emergency Provider Student in an Organized Health Care Education/Training Program
DX: T63.441A Toxic effect of venom of bees, accidental (unintentional), initial encounter (principal)
CPT/HCPCS: 96374; 96375; 99283; 99284; J2930